=== PATIENT | male | born 1950 | race Caucasian/White ===

== ENCOUNTER → 2020-11-06 12:34 | Outpatient (CLI) | payer MEDICARE, OTHER, SELFPAY ==
--- NOTE | 2020-11-06 | DI.MRI.S_ITS ---
PROCEDURE: MR KNEE LT WO CON INDICATIONS: Pain in left knee TECHNIQUE: Noncontrast sagittal PD fast spin echo and T2 fast spin echo with fat saturation, sagittal 3-D FLASH with fat saturation; coronal T1 spin echo and PD fast spin echo with fat saturation, and axial PD fast spin echo with fat saturation through the knee. COMPARISON: None. FINDINGS: Menisci: Medial meniscus: Medial meniscal tear is present involving the posterior horn and body with marked truncation of the free margin. There is also slight partial extrusion and abnormal signal extending to the undersurface. Lateral meniscus: Intact. Cruciate ligaments: Anterior cruciate ligament: Thickened appearance and striations of the anterior cruciate ligament raising possibility of mucoid degeneration. There is edema and early cystic change in the tibial eminence. Differential includes age-indeterminate partial rupture/sprain. Posterior cruciate ligament: Intact. Medial structures: The medial collateral ligament: There is medial bowing of the medial collateral ligament, with mild internal signal changes and no complete rupture. There is adjacent soft tissue edema. The appearance could reflect reactive changes to medial compartment pathology, versus low-grade sprain of the MCL. Semimembranosus tendon: Mild insertional tendinopathy. Visualized pes anserinus tendons: Intact. Bursal fluid: none. Lateral structures: The lateral collateral ligament intact. Biceps femoris tendon appears intact. Popliteus tendon grossly unremarkable. Iliotibial band appears intact. Anterior structures: Quadriceps tendon: Intact. Medial patellofemoral ligament: Intact. Lateral patellofemoral ligament: Intact. Patellar tendon: Mild tendinopathy. Anterior soft tissues: Prepatellar and superficial infrapatellar subcutaneous edema/fluid. Deep infrapatellar region: Normal. Bones and cartilage: Marrow: No focal marrow contusion or discrete low signal fracture line. Medial compartment: Mild diffuse partial-thickness loss of the femoral and tibial cartilage. Lateral compartment: No focal chondral defect. Patellofemoral compartment: Mild surface fraying of the patellar and femoral trochlear cartilage. Joint space: Effusion: Moderate joint effusion. Popliteal fossa: No Martinez's cyst. Loose bodies: None. IMPRESSION: Medial meniscal tear involving the posterior horn and body with slight partial extrusion. Adjacent MCL changes as above. Mild joint degeneration involving the medial and patellofemoral compartments. Moderate joint effusion Patellar tendinopathy with adjacent fluid/edema. Thickened and striated appearance of the ACL suggestive of mucoid degeneration although differential includes age-indeterminate low-grade sprain. Dictated by: Americo Del Rosario M.D. on 11/06/2020 at 15:02 Approved by: Americo Del Rosario M.D. on 11/06/2020 at 15:30
== END ==
PROVIDERS: PCP Family Medicine; Referring Provider Orthopaedic Surgery Foot and Ankle Surgery; Visit Provider Orthopaedic Surgery Foot and Ankle Surgery
DX: M25.562 Pain in left knee (principal); S83.242A Other tear of medial meniscus, current injury, left knee, initial encounter; M25.462 Effusion, left knee
CPT/HCPCS: 73721

== ENCOUNTER → 2022-06-28 12:14 | Outpatient (CLI) | payer MEDICARE, SELFPAY ==
--- NOTE | 2022-06-28 | DI.MRI.S_ITS ---
PROCEDURE: MR ANKLE RT WO CON INDICATIONS: Peroneal tendinitis, right leg TECHNIQUE: Noncontrast sagittal T1 spin echo and T2 fast spin echo with fat saturation, axial proton density fast spin echo and T2 fast spin echo with fat saturation, coronal T1 spin echo and T2 fast spin echo with fat saturation through the ankle/hindfoot. COMPARISON: None. FINDINGS: Image quality: Excellent. Bones and joints: [id number] midfoot and hindfoot joint osteoarthritis is seen with joint space narrowing, subchondral sclerosis and mild marrow edema particularly involving 2nd through 4th TMT joints. No fracture or dislocation. No hindfoot coalitions. No osteochondral injuries of the talar dome. No pathologic joint effusions. Medial structures: The posterior tibialis, flexor digitorum longus, and flexor hallucis longus tendons are intact. The posterior tibial neurovascular bundle appears normal within the tarsal tunnel, without extrinsic mass effect. The deltoid ligament is thickened. The spring ligament is intact. Lateral structures: The anterior talofibular, calcaneofibular, and posterior talofibular ligaments appear attenuated with intrasubstance T2 hyperintense signal. More superiorly, the anterior and posterior tibiofibular ligaments appear intact, as is the intermalleolar ligament. The tibiofibular syndesmosis is normal in width at 2 mm or less. The peroneus longus and brevis tendons are thickened at the level of mid to distal calcaneus extending to their insertion on metatarsal bases. Adjacent bony peroneal tubercle and retrotrochlear prominence are normal in size. The sinus tarsi demonstrates normal fatty signal, without edema, fibrosis, or cyst formation. Visualized sinus tarsi components (cervical ligament, interosseous talocalcaneal ligament, roots of the inferior extensor retinaculum) appear normal. The calcaneonavicular and calcaneocuboid components of the bifurcate ligament appear intact. The dorsal calcaneocuboid ligament appears intact. Anterior structures: The tibialis anterior, extensor hallucis longus, and extensor digitorum longus tendons appear intact. The dorsal talonavicular ligament appears intact. Posterior and plantar structures: Distal Achilles tendinosis at its posterior calcaneal insertion is seen. Medial and lateral bands of the plantar fascia are of normal thickness. No abductor digiti quinti muscle atrophy to suggest Pina neuropathy. IMPRESSION: 1. [id number] midfoot and hindfoot joint osteoarthritis most notably involving 2nd through 4th TMT joints as above. No fracture or dislocation. No osteochondral injuries of talar dome. 2. Low-grade sprain involving spring ligament. Low to moderate grade intrasubstance partial-thickness tear involving anterior and posterior talofibular ligaments and calcaneofibular ligament. 3. Distal Achilles tendinosis. No Achilles tendon rupture. 4. Distal peroneus tendinosis. Dictated by: Heladio Purdy M.D. on 06/28/2022 at 16:34 Approved by: Heladio Purdy M.D. on 06/28/2022 at 16:43
== END ==
PROVIDERS: PCP Family Medicine; Referring Provider Orthopaedic Surgery Foot and Ankle Surgery; Visit Provider Orthopaedic Surgery Foot and Ankle Surgery
DX: S93.491A Sprain of other ligament of right ankle, initial encounter (principal); S93.411A Sprain of calcaneofibular ligament of right ankle, initial encounter; M76.71 Peroneal tendinitis, right leg; M19.071 Primary osteoarthritis, right ankle and foot
CPT/HCPCS: 73721